=== PATIENT | female | born 1945 | race Caucasian/White ===

== ENCOUNTER → 2017-01-21 | Outpatient (CLI) | payer OTHER ==
[~2017-01-21] MED LIST: ASCO1CAP3 PO; AZEL15GE TOP; BIOTCAP2 PO; BROM0.07 OPL; CALC-279 PO; CLR10 PO; DICL1GEL12 TD; DOXYCYCLINE PO; GABA-113 PO; LEVO75TA5 PO; MULT-506 PO; OMEG12006 PO; OMEP20CA9 PO; OSTEOBIFLEX PO; PRED1SUS3 OPL; VALA1TAB PO
== END | disposition home or self-care (01) ==
LOC: C.RDSM 13:53
PROVIDERS: ATTEND Physical Medicine & Rehabilitation Sports Medicine
DX: M25.561 Pain in right knee (principal)

== ENCOUNTER → 2017-04-22 | Outpatient (CLI) | payer OTHER | END | disposition home or self-care (01) | LOC: C.RDSM 10:37 | PROVIDERS: ATTEND Physical Medicine & Rehabilitation Sports Medicine | DX: M25.511 Pain in right shoulder (principal) ==

== ENCOUNTER → 2017-04-23 | Outpatient (CLI) | payer OTHER ==
--- NOTE | 2017-04-23 15:18 | MAMMOGRAPHY REPORT ---
BILATERAL DIGITAL SCREENING MAMMOGRAM TOMOSYNTHESIS WITH CAD: 04/23/2017 CLINICAL HISTORY: Routine screening. Patient has no complaints. TECHNIQUE: Breast tomosynthesis in addition to standard 2D mammography was performed. Current study was also evaluated with a Computer Aided Detection (CAD) system. COMPARISON: Comparison is made to exams dated: 04/24/2016 mammogram, 04/24/2016 ultrasound, 04/17/2016 mammogram, 04/14/2015 mammogram, 04/13/2014 mammogram, and 04/12/2013 mammogram - [facility] enter. BREAST COMPOSITION: There are scattered areas of fibroglandular density in both breasts. FINDINGS: No suspicious masses, calcifications, or areas of architectural distortion are noted in ei ther breast. There has been no significant interval change compared to prior exams. Scattered bilater al benign-appearing calcifications are not significantly changed. IMPRESSION: ACR BI-RADS CATEGORY 2: BENIGN There is no mammographic evidence of malignancy. A 1 year screening mammogram is recommended. The pa tient will receive written notification of the results. Approximately 10% of breast cancers are not detected with mammography. A negative mammographic report should not delay biopsy if a clinically suggestive mass is present. Raissa Sharpe M.D. /:04/23/2017 11:18:13 Turret Lathe Operator: Rebecca GOMEZ(Molly)(M), [facility] letter sent: Normal 1/2 BI-RADS Code: ACR BI-RADS Category 2: Benign
== END | disposition home or self-care (01) ==
LOC: C.MAMM 09:35
PROVIDERS: ATTEND Family Medicine
DX: Z12.31 Encounter for screening mammogram for malignant neoplasm of breast (principal)

== ENCOUNTER → 2017-09-18 | Outpatient (CLI) | payer OTHER ==
--- NOTE | 2017-09-18 15:42 | DIAGNOSTIC IMAGING REPORT ---
L KNEE 3 VIEWS CLINICAL HISTORY: ACUTE LEFT KNEE PAIN pain COMPARISON: None. DISCUSSION: Several subtle loss as well as bodies within the intercondylar notch. Mild degenerative change all major joint compartments. No evidence for fracture. Mild peripheral osteophytic reaction from all major joint compartments. There is no evidence for soft tissue swelling. IMPRESSION: Mild degenerative change all major joint compartments. Several small loose bodies at the intercondylar notch region. The above report was generated using voice recognition software. It may contain grammatical, syntax or spelling errors. Electronically signed by: Dylan Lima M.D. 09/18/2017 3:41 PM Dictated Date/Time: 09/18/2017 3:40 PM
== END | disposition home or self-care (01) ==
LOC: C.RDSM 20:15
PROVIDERS: ATTEND Family Medicine
DX: M25.562 Pain in left knee (principal); M23.42 Loose body in knee, left knee

== ENCOUNTER → 2017-10-07 | Outpatient (CLI) | payer OTHER | END | disposition home or self-care (01) | LOC: C.RDSM 14:21 | PROVIDERS: ATTEND Physical Medicine & Rehabilitation Sports Medicine | DX: M25.561 Pain in right knee (principal) ==

== ENCOUNTER → 2018-02-27 | Outpatient (CLI) | payer OTHER ==
[~2018-02-27] MED LIST changes: +ASPI81TA28 PO; -AZEL15GE TOP; -BIOTCAP2 PO; -BROM0.07 OPL; +COEN75CA PO; +DOXY100C76 PO; -DOXYCYCLINE PO; +METRONIDAZOLE GEL TOP; -PRED1SUS3 OPL; +RED1CAP5 PO; -VALA1TAB PO; +VALA500T60 PO
[2018-02-27 13:07] LABS: BASO % 0.2 %; BASO ABS # 0.01 K/uL (0-0.2); EOS % 1.8 %; EOS ABS # 0.12 K/uL (0-0.5); HEMATOCRIT 42.8 % (37-47); HEMOGLOBIN 14.3 g/dL (12.0-16.0); IG# 0.01 K/uL (0.00-0.02); LYMPH % 42.6 %; MEAN CELL VOLUME 85.8 fL (80-100); MEAN CORPUSCULAR HEMOGLOBIN 28.7 pg (25-34); MEAN CORPUSCULAR HGB CONC 33.4 g/dl (32-36); MEAN PLATELET VOLUME 10.1 fL (7.4-10.4); MONO ABS # 0.33 K/uL (0.11-0.59); NEUT % 50.2 %; PLATELET COUNT 270 K/uL (130-400); RED CELL DISTRIBUTION WIDTH CV 13.5 % (11.5-14.5); WHITE BLOOD COUNT 6.57 K/uL (4.8-10.8)
--- NOTE | 2018-02-27 13:08 | DIAGNOSTIC IMAGING REPORT ---
CHEST 2 VIEWS ROUTINE CLINICAL HISTORY: PAT preoperative evaluation COMPARISON STUDY: No previous studies for comparison. FINDINGS: The bones soft tissues and hemidiaphragms are normal. The cardiomediastinal silhouette is normal. The lungs are clear. The pulmonary vasculature is normal. IMPRESSION: Negative chest. The above report was generated using voice recognition software. It may contain grammatical, syntax or spelling errors. Electronically signed by: Dylan Lima M.D. 02/27/2018 1:07 PM Dictated Date/Time: 02/27/2018 1:03 PM
[2018-02-27 13:17] LABS: BLOOD UREA NITROGEN 19 mg/dl (7-18); CALCIUM 9.6 mg/dl (8.5-10.1); CARBON DIOXIDE 27 mmol/L (21-32); GLUCOSE 88 mg/dl (70-99); POTASSIUM 4.3 mmol/L (3.5-5.1); SODIUM 139 mmol/L (136-145)
[2018-02-27 13:23] LABS: PTT PATIENT 26.9 SECONDS (21.0-31.0)
== END | disposition home or self-care (01) ==
LOC: C.RAD 11:56
PROVIDERS: ATTEND Physical Medicine & Rehabilitation Sports Medicine
DX: Z01.818 Encounter for other preprocedural examination (principal); M17.11 Unilateral primary osteoarthritis, right knee

== ENCOUNTER 2018-03-17 05:01 | Inpatient (IN) | payer OTHER ==
--- NOTE | 2018-02-27 12:21 | PAT Medication Instructions ---
Service Date Feb 27, 2018. Current Home Medication List Ascorbic Acid (Vitamin C), 1 CAP PO BID Aspirin (Aspirin Ec), 81 MG PO HS Calcium Citrate-Vitamin D (Calcium Citrate + D), 1 TAB PO QPM Coenzyme Q10 (Ubidecarenone) (Co Q-10), 1 CAP PO BID Diclofenac Sodium (Topical) (Voltaren 1% Top Gel), 1 DOSE TD DIRECTED Doxycycline Monohydrate (Monodox), 50 MG PO BID Gabapentin (Neurontin), 600 MG PO TID Levothyroxine Sodium (Levothyroxine Sodium), 1 TAB PO QAM Loratadine (Claritin), 10 MG PO HS Multivitamin (Multivitamin), 1 TAB PO QAM Stilwell-3 Fatty Acids ([place]ilwell 3), 1 CAP PO QAM Omeprazole (Prilosec), 20 MG PO QPM Red Yeast Rice Extract (Red Yeast Rice), 600 MG PO BID Valacyclovir (Valtrex), 500 MG PO BID PRN for UD [Metronidazole Gel], 1 DOSE TOP UD [Osteobiflex], 1 CAP PO BID Medication Instructions For Your Scheduled Surgery - Hold the following medications 2 weeks prior to surgery: Coenzyme Q10 (Ubidecarenone) (Co Q-10), 1 CAP PO BID Stilwell-3 Fatty Acids (Stilwell 3), 1 CAP PO QAM Red Yeast Rice Extract (Red Yeast Rice), 600 MG PO BID [Osteobiflex], 1 CAP PO BID - Hold the following medications 24 hours prior to surgery: Diclofenac Sodium (Topical) (Voltaren 1% Top Gel), 1 DOSE TD DIRECTED [Metronidazole Gel], 1 DOSE TOP UD - Hold the following medications the morning of surgery: Ascorbic Acid (Vitamin C), 1 CAP PO BID Multivitamin (Multivitamin), 1 TAB PO QAM - Take the following medications the morning of surgery with a sip of water: Doxycycline Monohydrate (Monodox), 50 MG PO BID Gabapentin (Neurontin), 600 MG PO TID Levothyroxine Sodium (Levothyroxine Sodium), 1 TAB PO QAM Valacyclovir (Valtrex), 500 MG PO BID PRN for UD (if needed) - Take the following medications as scheduled the night before surgery: Ascorbic Acid (Vitamin C), 1 CAP PO BID Aspirin (Aspirin Ec), 81 MG PO HS Calcium Citrate-Vitamin D (Calcium Citrate + D), 1 TAB PO QPM Doxycycline Monohydrate (Monodox), 50 MG PO BID Gabapentin (Neurontin), 600 MG PO TID Loratadine (Claritin), 10 MG PO HS Omeprazole (Prilosec), 20 MG PO QPM Valacyclovir (Valtrex), 500 MG PO BID PRN for UD (if needed) If you have any questions please call us at [phone] or [phone] or [phone]
--- NOTE | 2018-03-03 13:45 | History and Physical ---
History & Physical Date & Time of Service: Mar 03, 2018 at 12:55 Chief Complaint: Right Knee Osteoarthritis Primary Care Physician: Nasim Holcomb M.D. History of Present Illness Source: patient Mrs. Akbar is a pleasant 72-year-old female who is here today for preoperative history and physical. She is scheduled for elective right total knee arthroplasty by Dr. Arango on March 17, 2018. Her surgery will be performed at the [facility]. She states that she has long- standing bilateral knee pain, right greater than left. He has been ongoing for many years. Over the last 6-12 months both knees have progressively worsened. Most of her pain on her right knee is on the inside aspect of the knee. Her pain is increased with activity and weightbearing. She does have decreasing activities of daily living due to pain in both of her knees. She has pain with range of motion and limited motion of her right knee due to pain. Aggravating activities include walking, going up and down steps. She gets stiffness after resting in one position for a period of time. She states it does take a couple steps to kind of loosen things up. Prior treatments include nonsteroidal anti- inflammatory drugs, outpatient physical therapy, corticosteroid injections and viscous supplementation. All these previous treatments provide little to no relief at this point. Due to her failure of conservative treatment and persistent and progressively worsening symptoms she would like to proceed with an elective total knee arthroplasty of her right knee. Past Medical/Surgical History Past medical history: 1. Rosacea 2. Hypothyroidism 3. Osteoarthritis 4. History of spine, neck and upper back problems 5. Acid reflux 6. History of kidney stones Past surgical history: 1. Tonsillectomy and adenoidectomy 2. Cyst on her breast excised 3. Uterine and ovarian fibroids removed by laser surgery 1982 4. Cholecystectomy 5. Spinal fusion of L4-L5, L3-L4 6. Cyst removed of her spinal cord Family History Father has a history of heart disease and stroke. Mother has a history of stroke. Social History She uses a cane to assist with ambulation. Smoking Status: Never Smoker Smokeless Tobacco Use: No Alcohol Use: none Drug Use: none Marital Status: Housing status: lives with significant other Immunizations History of Influenza Vaccine: Yes Influenza Vaccine Date: Apr 13, 2005 History of Tetanus Vaccine?: Yes History of Pneumococcal: Yes History of Hepatitis B Vaccine: No Allergies Coded Allergies: Sulfa Drugs (Verified Allergy, Intermediate, HIVES, 02/23/18) Oxycodone (Verified Adverse Reaction, Unknown, HALLUCINATES, 02/23/18) Home Medications Scheduled Ascorbic Acid (Vitamin C), 1 CAP PO BID Aspirin (Aspirin Ec), 81 MG PO HS Calcium Citrate-Vitamin D (Calcium Citrate + D), 1 TAB PO QPM Coenzyme Q10 (Ubidecarenone) (Co Q-10), 1 CAP PO BID Diclofenac Sodium (Topical) (Voltaren 1% Top Gel), 1 DOSE TD DIRECTED Doxycycline Monohydrate (Monodox), 50 MG PO BID Gabapentin (Neurontin), 600 MG PO TID Levothyroxine Sodium (Levothyroxine Sodium), 1 TAB PO QAM Loratadine (Claritin), 10 MG PO HS Multivitamin (Multivitamin), 1 TAB PO QAM Hillsdale-3 Fatty Acids ([place] 3), 1 CAP PO QAM Omeprazole (Prilosec), 20 MG PO QPM Red Yeast Rice Extract (Red Yeast Rice), 600 MG PO BID [Metronidazole Gel], 1 DOSE TOP UD [Osteobiflex], 1 CAP PO BID Scheduled PRN Valacyclovir (Valtrex), 500 MG PO BID PRN for UD Review of Systems She states that she gets occasional sinus headaches. On blurry vision, but needs cataract surgery. She occasionally gets constipated but it is relieved with prunes. Denies any history of MRSA. Constitutional: No fever, No chills, No sweats, No weight loss, No fatigue Eyes: No worsening of vision, No redness, No diplopia ENT: No hearing loss, No unusual epistaxis, No nasal symptoms, No sore throat, No tinnitus, No dental problems Respiratory: No cough, No sputum, No wheezing, No shortness of breath, No dyspnea on exertion, No dyspnea at rest Cardiovascular: No chest pain, No edema, No palpitations Abdomen: No pain, No nausea, No vomiting, No diarrhea, No constipation Musculoskeletal: + joint pain (Bilateral knees), No swelling, No calf pain Genitourinary - Female: + urinary incontinence (With sneezing or coughing), No dysuria, No urinary frequency, No urinary urgency, No urinary retention, No hematuria Neurologic: No memory loss, No paralysis, No numbness/tingling, No balance problems Psychiatric: No depression symptoms, No anxiety Hematologic / Lymphatic: No abnormal bleeding/bruising, No clotting problems Integumentary: No rash, No itch Allergic / Immunologic: No frequent infections Physical Exam Height 5 feet 4 inches, weight 175 pounds General Appearance: WD/WN, no apparent distress Head: normocephalic, atraumatic Eyes: normal inspection, PERRL, EOMI, sclerae normal ENT: normal ENT inspection, hearing grossly normal, TMs normal, pharynx normal Neck: supple, no adenopathy, no carotid bruits, trachea midline Respiratory/Chest: chest non-tender, lungs clear, normal breath sounds, no respiratory distress, no accessory muscle use Cardiovascular: regular rate, rhythm, no edema, no murmur, normal peripheral pulses Abdomen/GI: normal bowel sounds, non tender, soft Extremities/Musculoskelatal: normal inspection, no calf tenderness, normal capillary refill, no pedal edema, normal range of motion, + pertinent finding ( She ambulance with a positive limp and the assistance of a cane. Varus alignment bilaterally with normal head movement. Active straight leg raise is intact. Passively, she has negative straight leg raise bilaterally. Strength is normal 5/5 throughout. Range of motion is 0/10/110 on the right, 0/10/105 on the left. Cruciate and collateral stability is intact. She is tenderness of the medial joint line.) Neurologic/Psych: no motor/sensory deficits, alert, normal mood/affect, normal reflexes, oriented x 3 Skin: normal color, warm/dry, no rash Lymphatic: no adenopathy Diagnostics Diagnostic Radiology Diagnostic radiology: Radiographs done on October 07, 2017 of both knee show osteoarthritis, tricompartmental on the right knee with near [id number] changes, less so on the left. It looks like there are several loose bodies in the front of the left knee. There is no evidence of fracture on either knee. Osteophyte formation is present. Impression Assessment and Plan Assessment: Bilateral knee osteoarthritis, right greater than left. Plan: Patient is scheduled for an elective right total knee arthroplasty to be performed by Dr. Arango at the [facility] on March 17, 2018. Risks and complications of surgery were explained to the patient and include but are not limited to infection, pain, bleeding, scarring, nerve and blood vessel damage, wound problems, weakness, stiffness, incomplete relief of symptoms, fracture, hardware failure, loosening, wear, blood clots, embolisms, heart attack, stroke and .She will have preadmission testing and which she will obtain a preoperative CBC, BMP, PT/PTT, type and screen, chest x-ray, EKG. She will also need preoperative medical clearance prior to surgery from her family physician Dr. Spaulding. She would like to go home with in-home nursing and physical therapy after surgery. She states that after her back surgery she did best when she stayed for 2 days. Postoperative course was discussed. She does have a walker to use at home after surgery. We will use Lovenox 30 mg twice a day x 2-44 weeks after surgeryFor DVT prophylaxis. She will follow up 2 weeks after surgery with Dr. Arango for suture removal. We discussed the usage of preoperative CHG cloths. All questions were answered today. And she does call with any further problems, questions or concerns. Advanced Directives Existing Living Will: Yes Existing Power of Rivet Bucker: No Resuscitation Status VTE Prophylaxis Will order VTE Prophylaxis: Yes
[~2018-03-17] VITALS: Ht 162.6 cm; Wt 80.6 kg
[2018-03-17] VITALS (9 sets, daily range): BP systolic 114–162; BP diastolic 71–89; PULSE 73–82; TEMP 36.2–36.7; O2SAT 94–98; Ht 162.6 cm; Wt 80.6 kg
[~2018-03-17 05:01] MED LIST changes: +ROPIVACAINE 5MG/ML 30 ML 150 MG, BUPIVACAINE 0.5% MPF INJ 30 ML, EpINEphrine HCL INJ 0.... INFIL SCH
[2018-03-17] MEDS ORDERED: LACTATED RINGER'S 1000ML 1,000 ML IV SCH (06:00)
[2018-03-17] MEDS ORDERED: CLONIDINE HCL 0.1 MG/24 HR TRANSDERM SYS TD SCH (06:00)
[2018-03-17] MEDS ORDERED: OXYCODONE HCL 10 MG TABCR (OXYCONTIN) PO SCH (06:00)
[2018-03-17] MEDS ORDERED: FAMOTIDINE 20 MG TAB PO SCH (06:00)
[2018-03-17] MEDS ORDERED: CEFAZOLIN 2000MG IV PUSH 15 ML IV SCH (06:00)
[2018-03-17] MEDS ORDERED: ACETAMINOPHEN 500 MG TAB PO SCH (06:00)
[2018-03-17] MEDS ORDERED: TRAMADOL HCL 50 MG TAB PO SCH (06:00)
[2018-03-17] MEDS ORDERED: GABAPENTIN 300 MG CAP PO SCH (06:00)
[2018-03-17] MEDS ORDERED: LACTATED RINGER'S 1000ML IV SCH (06:00)
[2018-03-17] MEDS ORDERED: TRANEXAMIC ACID INJ 1,000 MG x 1 Bag Intra-Op IV SCH ×2 (06:00)
[2018-03-17] MEDS ORDERED: LACTATED RINGER'S 1000ML 500 ML IV SCH (06:00)
[2018-03-17] MEDS ORDERED: DEXAMETHASONE 4 MG TAB PO SCH (06:00)
[2018-03-17] MEDS ORDERED: ROPIVACAINE 5MG/ML 30 ML 150 MG, BUPIVACAINE 0.5% MPF INJ 30 ML, EpINEphrine HCL INJ 0.... INFIL SCH ×6 (06:00)
[2018-03-17] MEDS ORDERED: METOCLOPRAMIDE HCL 10 MG TAB PO SCH (06:00)
[2018-03-17] MEDS ORDERED: BUPIVACAINE 0.5 % 5 MG/1 ML PF 10ML VIAL ONE (06:26)
[2018-03-17] MEDS ORDERED: ROPIVACAINE 0.5% 5 MG/ML 30 ML VIAL ONE (06:26)
[2018-03-17] MEDS ORDERED: POVIDONE-IODINE OP SOLN 30 ML BTL ONE (06:28)
[2018-03-17] MEDS ORDERED: ORTHO JOINT ANESTHETIC ONE (06:28)
[2018-03-17] MEDS ORDERED: SODIUM CHLORIDE 0.9% PF 50 ML VIAL ONE (06:29)
[2018-03-17] MEDS ORDERED: BACITRACIN 50000 UNIT VIAL ONE (06:29)
[2018-03-17] MEDS ORDERED: FENTANYL CITRATE INJ 50 MCG/1 ML 2 ML VIAL ONE (06:34)
[2018-03-17] MEDS ORDERED: MIDAZOLAM HCL 1 MG/ML 2ML VIAL ONE ×2 (06:34→08:45)
[2018-03-17] MEDS ORDERED: PROPOFOL IV EMULSION 10 MG/ML 20 ML VIAL ONE (06:35)
--- NOTE | 2018-03-17 06:36 | History & Physical Bridge Note ---
H&P Re-Evaluation Bridge Note: I have examined the patient, reviewed the History & Physical and in the interval since the performance of the History & Physical I have noted the following changes of clinical significance: No changes noted
[2018-03-17] MEDS: TRANEXAMIC ACID INJ 1,000 MG x 2 Bags IV SCH ×4 (06:45→11:23)
[2018-03-17] MEDS ORDERED: PHENYLEPHRINE 100MCG/ML 5ML SYR IV PRN (08:00)
[2018-03-17] MEDS ORDERED: EpHEDrine SULFATE INJ 50 MG/ML AMP IV PRN (08:00)
[2018-03-17] MEDS ORDERED: NALOXONE HCL 0.4 MG/1 ML VIAL/CARP IV PRN (08:00)
[2018-03-17] MEDS ORDERED: MEPERIDINE HCL 25 MG/ML CARP IV PRN (08:00)
[2018-03-17] MEDS ORDERED: ATROPINE SULFATE 0.1 MG/ML 5ML SYR IV PRN (08:00)
[2018-03-17] MEDS ORDERED: LABETALOL HCL IV 5 MG/ML 20ML IV PRN (08:00)
[2018-03-17] MEDS ORDERED: FENTANYL CITRATE INJ 50 MCG/1 ML 2 ML VIAL IV PRN (08:00)
[2018-03-17] MEDS ORDERED: FLUMAZENIL 0.1 MG/1 ML 10 ML VIAL IV PRN (08:00)
[2018-03-17] MEDS ORDERED: ONDANSETRON INJ 2 MG/ML 2 ML VIAL IV PRN (08:00)
--- NOTE | 2018-03-17 09:21 | [facility] Post Operative Brief Note ---
Immediate Operative Summary Operative Date Mar 17, 2018. Pre-Operative Diagnosis Right Knee Osteoarthritis Post-Operative Diagnosis Same as preop Procedure(s) Performed Right Total Knee Arthroplasty Surgeon Dr. Arango Powder Coater Surgeon(s) Hortensia Mehta PA-C Estimated Blood Loss 10mL Findings Consistent with Post-Op Diagnosis Specimens A. Right Knee Bone and Tissue Drains None Anesthesia Type MAC Spinal Regional Complication(s) none Disposition Accompanied Pt To Recover: no Disposition: Recovery Room / PACU
[2018-03-17] MEDS ORDERED: HYDROmorphone INJ 1 MG/ML SYR IV PRN (09:45)
[2018-03-17] MEDS ORDERED: TRAMADOL HCL 50 MG TAB PO PRN (09:45)
[2018-03-17] MEDS ORDERED: BISACODYL 10 MG SUPP PR PRN (09:45)
[2018-03-17] MEDS ORDERED: SOD PHOSPHATE/SOD BIPHOSPHATE ENEMA 132 ML BTL PR PRN (09:45)
[2018-03-17] MEDS ORDERED: METOCLOPRAMIDE HCL INJ 5 MG/ML 2 ML VIAL IV PRN (09:45)
[2018-03-17] MEDS ORDERED: ACETAMINOPHEN 325 MG TAB PO PRN (09:45)
[2018-03-17] MEDS ORDERED: MAGNESIUM HYDROXIDE SUSP 30 ML UDC PO PRN (09:45)
--- NOTE | 2018-03-17 09:56 | [facility] Operative Report ---
Operative Report Operative Date Mar 17, 2018. Pre-Operative Diagnosis Right Knee Osteoarthritis Post-Operative Diagnosis Same as preop Procedure(s) Performed Right Total Knee Arthroplasty Surgeon Dr. Arango Grinder Chipper Surgeon(s) Hortensia Mehta PA-C Estimated Blood Loss 10mL Findings DJD right knee Specimens A. Right Knee Bone and Tissue Drains None Anesthesia Type MAC Spinal Regional Complication(s) none Disposition no Recovery Room / PACU Indications Patient is a 72-year-old female presented to the office with complaints of right knee pain. Pain is progressively worse. She has failed conservative treatment which has consisted of bracing, corticosteroid injections, Visco supplementation and physical therapy. X-rays were taken and she was found to have end-stage osteoarthritis of her right knee. She wished to proceed with surgery. Risks and complications were discussed. Informed consent was obtained. Surgery was scheduled. Description of Procedure Patient was taken to the operating room and placed under IV sedation. She was given a peripheral nerve block preoperatively. She was given 2 g of IV Ancef preoperatively. She was prepped and draped in routine sterile fashion. Timeout was performed. I was present during the entire case, please see Dr. Arango's operative report for further detail. Patient was awakened and transferred to the recovery room in stable condition. I attest to the content of the Intraoperative Record and any orders documented therein. Any exceptions are noted below.
--- NOTE | 2018-03-17 09:59 | [facility] Operative Report ---
Operative Report Operative Date Mar 17, 2018. Pre-Operative Diagnosis Right Knee Osteoarthritis Post-Operative Diagnosis Same as preop Procedure(s) Performed Right Total Knee Arthroplasty Surgeon Dr. Arango Log Tumbler Surgeon(s) Hortensia Mehta PA-C Estimated Blood Loss 10mL Specimens A. Right Knee Bone and Tissue Drains None Anesthesia Type MAC Spinal Regional Complication(s) none Disposition no Recovery Room / PACU Indications Patient is a 72-year-old female with end-stage osteoarthritis of her right knee refractory to nonsurgical methods of management. Description of Procedure Informed consent obtained. Patient identified. She identified the operative site as the right knee. I marked with my initials. A preop surgical timeout was performed and a preop dose of IV antibiotics given. She was taken to the operating room and was positioned supine on the OR table with a tourniquet on the right thigh and a bump under the right calf. The leg was prepped and draped in usual sterile fashion. DVT prophylaxis intraoperatively with foot pumps and postoperatively with early mobility Lovenox and mechanical devices. The exam under anesthesia revealed no pathological laxity. She had a stiff varus knee with a 10 flexion contracture and her knee flexion was only to about 110. Routine prep and drape was performed. The leg was exsanguinated with the Esmarch. Tourniquet inflated to 250 mmHg. A midline longitudinal incision was made followed by medial parapatellar arthrotomy. Soft tissue on the anterior aspect of the distal femur was excised. The retropatellar fat pad was resected. A medial release was performed. Osteophytes throughout the knee were removed there were grade 4 changes in the patellofemoral compartment with large osteophytes on the patella grade 4 changes medially as well over the weightbearing area. The lateral compartment was relatively normal the cruciate ligaments were intact although the ACL was small. The cruciate ligaments were excised. The synovial reflection in the lateral gutter was released. The knee was subluxated and a ems helicopter pilot hole was drilled into the proximal tibia just in front and between the tibial spines. An intramedullary alignment ghislaine was inserted followed by the tibial cutting guide. The extra medullary alignment guide was utilized showing a slight posterior slope but otherwise alignment with the second ray and bisecting the ankle joint. This cut was made to take 10 mm off the high side corresponding to about 4 mm off the low side. The tibia was sized to a 3. Glue Bone Crusher hole was drilled into the distal femur just above the PCL and the intramedullary alignment ghislaine was inserted set to resect 6 valgus 14 mm thick. The collaterals were okay. This cut was made and the trans-epicondylar axis marked out. The extension gap was symmetric 10. The distal femoral sizing block was applied and sized with 3. The external rotation drill holes were marked. The collateral ligaments were protected and the size 3 anterior down cutting block was applied and the cuts were made. Osteophytes were removed from the back of the knee. Approximately 5 large loose bodies were removed throughout the knee including posterior medially. Posterior medial and lateral osteophytes were removed. The flexion gap was a symmetric 10. The box cutting guide was applied and lateralized. The cut was made and the femoral component was applied. The tibia was prepared with the keel and punch and the trial spacer was inserted. The knee was stable full extension and at 90. There was 1 + LCL laxity in mid position the MCL was stable. The patella measured 22-1/2 mm in thickness the guide was set to preserve 14. The cut was made in 38 patella was selected. This was aligned appropriately distal lysed and medialized. The lug holes were drilled. Patellar tracking was fine with no hands technique. The trial components removed. The canals were plugged. Or the joint mix was injected in the back of the knee Betadine lavage and pulse lavage was then performed. 2 bags of Simplex P cement were mixed and while in a doughy state cemented femur tibia and patella. Smears of cement were placed on the posterior condyles and he was held for extension with patellar clamp until the cement hardened. At this time the tourniquet was let down after approximately 85 minutes of inflation there is no significant bleeding and meticulous hemostasis was performed. Extraneous cement in the back the knee was removed. The after mentioned laxity profile held true. The final polyethylene was inserted after inspecting the back the knee for cement and irrigating. Composite patellar thickness was 23 mm gravity assisted flexion with the extensor mechanism closed was 110. Pulsatile lavage was performed and the remainder the Ortho joint mix was injected Betadine lavage was also performed while the cement was hardening. The extensor mechanism was closed with interrupted #2 FiberWire above the equator the patella and interrupted #1 Vicryl below the skin was closed in layers with 0 and 2-0 and carlos followed by ortho joint mix. The leg was cleaned wet and dry sponges and soft sterile dressing was applied followed by Xeroform 4 x 4's ABD and a full-length Leonard wrap. She was awakened from anesthesia without difficulty and taken to the recovery room in stable condition. The resected bone from for specimen. There were no complications. Blood loss was approximately 10 cc. At the conclusion the operation I spoke the patient's family and informed of my findings and gave detailed postoperative instructions. Her Lovenox will begin the evening of surgery. Components inserted with a J&J PFC Sigma size 3 right posterior stabilized femur a size 3 posterior stabilized polyethylene insert a 38 mm 3 peg oval dome patella and a size 3 keeled mobile-bearing tibial tray. I attest to the content of the Intraoperative Record and any orders documented therein. Any exceptions are noted below.
--- NOTE | 2018-03-17 10:21 | DIAGNOSTIC IMAGING REPORT ---
R KNEE 1 OR 2 VIEWS ROUTINE CLINICAL HISTORY: Right knee osteoarthritis. COMPARISON: Right knee radiograph October 07, 2017. FINDINGS: Alignment of the total right hip arthroplasty is anatomic. There is no fracture or unexpected radiopaque foreign body. Skin carlos are present. IMPRESSION: Expected findings following total right hip arthroplasty. Electronically signed by: Efrain Coon M.D. 03/17/2018 10:19 AM Dictated Date/Time: 03/17/2018 10:19 AM
--- NOTE | 2018-03-17 10:22 | Anesthesiology Progress Note ---
Anesthesia Post Op Note Date & Time Mar 17, 2018 at 10:22 Vital Signs Pain Intensity: 0 Vital Signs Past 12 Hours Date Time Temp Pulse Resp B/P (MAP) Pulse Ox O2 Delivery O2 Flow Rate FiO2 03/17/18 10:10 77 16 119/66 95 Nasal Cannula 2 03/17/18 10:00 36.4 76 16 114/60 93 Nasal Cannula 2 03/17/18 09:50 75 16 107/64 93 Nasal Cannula 2 03/17/18 09:41 36 88 16 130/65 93 Nasal Cannula 2 03/17/18 05:32 36.2 80 20 162/89 97 Room Air Notes Mental Status: alert / awake / arousable, participated in evaluation Pt Amnestic to Procedure: Yes Nausea / Vomiting: adequately controlled Pain: adequately controlled Airway Patency, RR, SpO2: stable & adequate BP & HR: stable & adequate Hydration State: stable & adequate Neuraxial Anesthesia: was administered, sensory block is resolving Anesthetic Complications: no major complications apparent
[2018-03-17] MEDS ORDERED: KETOROLAC TROMETHAMINE 30 MG/ML VIAL IV. SCH (12:00)
[2018-03-17] MEDS: KETOROLAC TROMETHAMINE 15 MG/ML VIAL IV. SCH ×3 (12:45→23:36)
[2018-03-17] MEDS: GABAPENTIN 600 MG TAB PO SCH ×2 (13:58→21:10)
[2018-03-17] MEDS: CEFAZOLIN IV 2,000 MG in SYRINGE 0 ML IV SCH ×2 (13:58→21:45)
[2018-03-17] MEDS ORDERED: LVNIS30 SQ (16:08)
[2018-03-17] MEDS ORDERED: HYDR-5688 PO (16:08)
[2018-03-17] MEDS ORDERED: ULT50X PO (16:08)
--- NOTE | 2018-03-17 16:27 | Progress Note ---
Progress Note Date of Service Mar 17, 2018. Progress Note Pain well controlled. No chest pain or shortness of breath. She has been out of bed and tolerating food. Afebrile vital signs stable. She has 5 out of 5 ankle and toe plantar flexion and dorsiflexion strength in her posterior tib pulse is 1+. Sensation is normal dressing is dry x-rays show well-positioned total knee arthroplasty without complication. Surgical findings are discussed. Will continue with routine postoperative care. Exercises are reviewed and she will wear her knee immobilizer when she is out of bed.
[2018-03-17] MEDS: D5W AND 1/2NSS + 20MEQ KCL 1,000 ML IV SCH (18:47)
[2018-03-17] MEDS: ENOXAPARIN 30 MG/0.3 ML SYR SQ SCH (19:52)
[2018-03-17] MEDS: CALCIUM 600MG + VIT D 400 IU TAB PO SCH (21:06)
[2018-03-17] MEDS: LORATADINE 10 MG TAB PO SCH (21:07)
[2018-03-17] MEDS: DOCUSATE SODIUM 100 MG CAP PO SCH (21:10)
[2018-03-17] MEDS: ASPIRIN 81 MG ECTAB PO SCH (21:10)
[2018-03-17] MEDS: ASCORBIC ACID 500 MG TAB PO SCH (21:11)
[2018-03-18] MEDS: D5W AND 1/2NSS + 20MEQ KCL 1,000 ML IV SCH ×2 (02:49→12:00)
[2018-03-18 02:55] VITALS: BP 143/74; PULSE 87; TEMP 36.9; O2SAT 97
[2018-03-18] MEDS: ONDANSETRON INJ 2 MG/ML 2 ML VIAL IV PRN ×2 (05:22→15:58)
[2018-03-18] MEDS: KETOROLAC TROMETHAMINE 15 MG/ML VIAL IV. SCH (05:22)
[2018-03-18] MEDS: LEVOTHYROXINE 75 MCG TAB PO SCH (05:28)
[2018-03-18 06:40] LABS: HEMATOCRIT 32.4 % (37-47); HEMOGLOBIN 10.7 g/dL (12.0-16.0); MEAN CELL VOLUME 84.6 fL (80-100); MEAN CORPUSCULAR HEMOGLOBIN 27.9 pg (25-34); MEAN PLATELET VOLUME 9.8 fL (7.4-10.4); PLATELET COUNT 224 K/uL (130-400); RED CELL DISTRIBUTION WIDTH CV 13.5 % (11.5-14.5); RED CELL DISTRIBUTION WIDTH SD 41.3 fL (36.4-46.3); WHITE BLOOD COUNT 12.94 K/uL (4.8-10.8)
[2018-03-18 07:07] LABS: CALCIUM 7.8 mg/dl (8.5-10.1); CREATININE 0.57 mg/dl (0.60-1.20)
[2018-03-18] MEDS ORDERED: DEXAMETHASONE 4 MG TAB PO ONE (07:30)
[2018-03-18 08:00] VITALS: BP 115/69; PULSE 96; TEMP 37; O2SAT 92
[2018-03-18] MEDS: ENOXAPARIN 30 MG/0.3 ML SYR SQ SCH ×2 (08:11→19:33)
--- NOTE | 2018-03-18 08:52 | Anesthesiology Progress Note ---
Anesthesia Post Op Note Date & Time Mar 18, 2018 at 08:51 Vital Signs Pain Intensity: 6.0 Vital Signs Past 12 Hours Date Time Temp Pulse Resp B/P (MAP) Pulse Ox O2 Delivery O2 Flow Rate FiO2 03/18/18 08:00 37.0 96 16 115/69 (84) 92 Room Air 03/18/18 07:20 Room Air 03/18/18 02:55 36.9 87 18 143/74 (97) 97 Room Air 03/17/18 23:45 Room Air 03/17/18 22:53 36.7 75 18 120/72 (88) 96 Room Air Notes Mental Status: alert / awake / arousable, participated in evaluation Pt Amnestic to Procedure: Yes Nausea / Vomiting: adequately controlled Pain: adequately controlled Airway Patency, RR, SpO2: stable & adequate BP & HR: stable & adequate Hydration State: stable & adequate Neuraxial Anesthesia: sensory block resolved Anesthetic Complications: no major complications apparent
[2018-03-18] MEDS: MULTIVITAMIN TAB PO SCH (09:00)
[2018-03-18] MEDS: DOCUSATE SODIUM 100 MG CAP PO SCH ×2 (09:00→21:00)
[2018-03-18] MEDS: GABAPENTIN 600 MG TAB PO SCH ×3 (09:00→21:09)
[2018-03-18] MEDS: ASCORBIC ACID 500 MG TAB PO SCH ×2 (09:00→21:09)
[2018-03-18] MEDS ORDERED: MULTIVITAMIN TAB PO SCH (09:00)
[2018-03-18] MEDS ORDERED: ONDA4TAB10 SL (09:20)
--- NOTE | 2018-03-18 09:24 | Orthopedic Progress Note ---
Orthopedic Progress Note Date of Service Mar 18, 2018. Subjective Post OP Day: 1 Reports: nausea / vomiting, Denies: chest pain, SOB, light headedness, calf pain Additional Notes: Having more pain today, biggest complaint is nausea. No vomiting, but feels like she's going to. No appetite because of the nausea. States its from taking Tramadol on an empty stomach this morning. More pain in her right knee, but tolerable. Has been given Zofran without relief and also just given Reglan to help with nausea. She would still like to go home today, states she needs to get into her own bed to sleep. Objective calves soft nontender, N/V intact, capillary refill less than 2 sec., dressing C /D/I, A&O x3, toes mobile Able to do ankle pumps right ankle. Strength 5/5 with ankle dorsiflexion/ plantarflexion Date Time Temp Pulse Resp B/P (MAP) Pulse Ox O2 Delivery O2 Flow Rate FiO2 03/18/18 08:00 37.0 96 16 115/69 (84) 92 Room Air 03/18/18 07:20 Room Air 03/18/18 02:55 36.9 87 18 143/74 (97) 97 Room Air 03/17/18 23:45 Room Air 03/17/18 22:53 36.7 75 18 120/72 (88) 96 Room Air 03/17/18 19:12 36.7 77 17 150/72 (98) 94 Room Air 03/17/18 16:18 36.3 73 16 120/72 (88) 95 Room Air 03/17/18 16:10 Room Air 03/17/18 13:30 76 16 114/71 (85) 97 Nasal Cannula 2.0 03/17/18 12:37 77 16 125/79 (94) 98 03/17/18 11:30 82 16 117/74 (88) 95 Nasal Cannula 2.0 03/17/18 11:00 82 16 124/75 (91) 94 Nasal Cannula 03/17/18 10:30 94 Nasal Cannula 2.0 03/17/18 10:30 36.3 75 16 117/73 (88) 94 Nasal Cannula 2.0 03/17/18 10:30 Nasal Cannula 2.0 03/17/18 10:10 77 16 119/66 95 Nasal Cannula 2 03/17/18 10:00 36.4 76 16 114/60 93 Nasal Cannula 2 03/17/18 09:50 75 16 107/64 93 Nasal Cannula 2 03/17/18 09:41 36 88 16 130/65 93 Nasal Cannula 2 Laboratory Results 24 Hours: Test 03/18/18 06:22 Hematocrit 32.4 % Hemoglobin 10.7 g/dL Assessment & Plan Assessment: POD 1 - Right TKA Plan: Start PT/OT today continue zofran/reglan for N/V Ice to right knee PRN pain/swelling. Bedside exercises as instructed. OOB/WBAT RLE with knee immobilizer and walker Continue Regular diet as tolerated Plan for home with home health. Patient would like to go home today, we'll see how she does in PT today to determine discharge. Will discuss findings with Dr. Arango. Follow up with Dr. Arango as instructed. Discharge Planning Discharge Planning: home with home health Pain Management: Percocet, Ultram DVT Prophylaxis: Peter Galindo Therapy: Physical Therapy
--- NOTE | 2018-03-18 09:27 | Discharge Instructions ---
Discharge Instructions Date of Service Mar 17, 2018. Admission Reason for Admission: Right Knee Osteoarthritis Discharge Discharge Diagnosis / Problem: Right knee osteoarthritis Discharge Goals Goal(s): Decrease discomfort, Improve function, Increase independence Activity Recommendations Activity Limitations: per Instructions/Follow-up section Weightbearing Status: Right weightbearing (as tolerated) . Instructions / Follow-Up Instructions / Follow-Up New Medicine: * You will likely be taking one or more of these medications: 1. Lovenox You will be on Lovenox for 2-4 weeks after surgery to prevent blood clots. Do not take anti- inflammatory pills (Advil or Aleve) while on Lovenox. Aspirin, 81 mg is OK. 2. Tramadol - Take, as directed, when needed, every 4-6 hours to control your pain. Alternate with Newman. 3. Newman Take, as directed, when you need it, every four to six hours to control your pain. 4. Colace & Senokot - Take to prevent constipation which can be caused by narcotics. These can be bought [id number] at the pharmacy 5. Zofran - take, every 4-6 hours as needed for nausea and/or vomiting * The most common side effects of pain medicine and iron are nausea and constipation. If nausea or constipation is too much of a problem or if you have any questions about your new medicines or doses, call [facility] at . We will try to help you manage these issues. VERY IMPORTANT TO READ AND REVIEW" Blood Clots and Blood Thinning Medicine: * You are given Lovenox during the immediate post-operative period to lessen the risk of blood clots forming in your legs and/or lungs. Lovenox is usually given for 2-4 weeks after surgery. * The prescription is for 30 mg syringes. At discharge, you should understand your dose and take it all at the same time every day. * You need to get your blood checked on Friday March 23, 2018 or as directed. Physical Therapy: * Do your physical therapy at home. These are the exercises you learned while in the hospital (quad sets, leg raises, calf pumps, gluteal squeezes, knee bending, and heel props.) You should do these exercises 3-4 times per day. * You will either go to inpatient rehab ([facility]), home with Home Therapy and nursing or home with outpatient rehab. You should do rehab with the therapist 2-3 times per week. You should do therapy on your own daily. * You may bear full weight on your leg with crutches or walker unless otherwise advised. Home Exercise: * You were shown a series of exercises (heel props, heel slides, etc.) in the hospital. Do these exercises three to four times each day including the exercises you were shown in physical therapy. Walking: * You may be up for short periods of time. Standing and walking for 1-2 hours at a time is usually okay. You should not stand or walk for excessive periods of time as this may cause increased pain and swelling. SELF CARE INSTRUCTIONS AFTER TOTAL KNEE REPLACEMENT A. You may need to continue a physical therapy program after discharge from the hospital. There are several options available to you. Your doctor will assist you in selecting the best one for you. 1. An out-patient facility 2 to 3 times a week for therapy or home therapy. 2. Continue working on all exercises taught to you in the hospital. Your goals should be to increase bending of your knee to 90 degrees and beyond and to fully straighten your knee. B. Your therapist will notify you when you are able to progress from a walker to a cane. C. Wear TEDS as much as possible.~ They may be removed at night for laundering. D. Do not place a pillow behind your knee when resting. A pillow at your ankle is okay. E. Ice your knee 15-20 minutes every 2-3 hours and elevate it above the level of your heart. F. You may shower on the fourth day after surgery using regular soap and water. Do not submerge until the wound is completely healed (approximately 2 weeks ). Until the fourth day after surgery, cover the incision/bandage with a bag or plastic wrap. G. Anyone who is touching your surgical incision area should wash their hands and wear gloves. H. Keep your incision covered with gauze pads under the ROGER hose until it is dry. VERY IMPORTANT TO READ AND REVIEW A. YOU WILL BE GIVEN AN ORDER AT DISCHARGE FOR CBC (BLOOD WORK). PLEASE HAVE THIS DONE INSTRUCTED. IF YOU ARE GOING TO OUTPATIENT PHYSICAL THERAPY, YOU WILL NEED TO GO TO OUTPATIENT TESTING TO HAVE IT DRAWN. B. There are a few signs you need to watch for after you are home. Call [facility] if you notice any of the followin. Increased severe knee pain. Some pain is expected especially when you exercise. 2. Increased swelling in your leg or knee; pain or swelling of the calf muscle in either lower leg. 3. Any fluid drainage from the incision. 4. Shortness of breath or chest pain. 5. Numbness and tingling in the surgical extremity C. Please call [facility] at if you have any concerns or questions about your operation or recovery. The doctor or his nurse will return your call promptly. D. Do not have any elective dental work or other elective procedures done for 6 weeks after your knee replacement. When you have any invasive procedure (dental cleaning, extraction, colonoscopy etc) performed, you will need to take antibiotics to prevent infection from developing in your artificial joint. Tell your other health care providers you have an artificial joint. My office will supply you with further information and the antibiotics. Call your doctor if: * Temperature above 101 degrees F. * Pain not relieved by pain medicine ordered. * Increased drainage or redness from incision. * Notify your doctor with any questions or concerns. Follow-up Visit: You will follow-up with Dr. Arango 10-14 days after surgery. The office number is . You have a follow up with Dr. Arango on 04/01/18 at 12:45 p.m. You have a scheduled follow up appointment with physical therapy on 04/02/18 at 10:30 a.m. Avoid all tobacco products. If you need help to stop smoking, call [place] at . This is a free call. Current Hospital Diet Patient's current hospital diet: Regular Diet Discharge Diet Recommended Diet: Regular Diet Procedures Procedures Performed: Right Total Knee Arthroplasty Pending Studies Studies pending at discharge: no Medical Emergencies . Who to Call and When: Medical Emergencies: If at any time you feel your situation is an emergency, please call 911 immediately. . Non-Emergent Contact Non-Emergency issues call your: Surgeon Call Non-Emergent contact if: temperature is above 101, your pain is not controlled, your pain is worsening, your pain is unusual for you, your pain is concerning you, wound has increased drainage, wound has increased redness, wound has increased pain, you have any medication questions . "Provider Documentation" section prepared by Hortensia Mehta. . [place] Drug Monitoring Program Search Results: patient reviewed within database, no issues identified
[2018-03-18] MEDS: PANTOprazole SOD 40 MG TAB PO SCH (10:36)
[2018-03-18 12:06] VITALS: BP 148/77; PULSE 88; TEMP 36.7; O2SAT 95
[2018-03-18 15:24] VITALS: BP 153/76; PULSE 92; TEMP 37.2; O2SAT 91
--- NOTE | 2018-03-18 17:59 | Progress Note ---
Progress Note Date of Service Mar 18, 2018. Progress Note Nausea without vomiting. Diarrhea. Unable to do PT. She does have some pain but it is controlled by medicine. She has no chest pains or shortness of breath. She did not sleep well. Her distal neurovascular function is intact she has a palpable posterior tib pulse with normal motor function her dressing is dry. We will continue her admission. Encouraged eating before taking medicine. She had perhaps 6 or 8 bowel movements today. We will go ahead and check for C. difficile. Restart IV as she is not having adequate oral intake and has diarrhea is and is at risk for dehydration.
[2018-03-18] MEDS: LACTATED RINGER'S 1000ML 1,000 ML IV SCH (18:03)
[2018-03-18] MEDS: HYDROCODONE/ACETAMIN 5/325MG TAB PO PRN ×2 (18:04→22:40)
[2018-03-18] MEDS: LORATADINE 10 MG TAB PO SCH (21:09)
[2018-03-18] MEDS: CALCIUM 600MG + VIT D 400 IU TAB PO SCH (21:09)
[2018-03-18] MEDS: ASPIRIN 81 MG ECTAB PO SCH (21:09)
[2018-03-18 22:50] VITALS: BP 137/77; PULSE 88; TEMP 36.7; O2SAT 96
[2018-03-19] MEDS: HYDROCODONE/ACETAMIN 5/325MG TAB PO PRN ×4 (02:39→16:10)
[2018-03-19] MEDS: LEVOTHYROXINE 75 MCG TAB PO SCH (05:40)
[2018-03-19] MEDS: LACTATED RINGER'S 1000ML 1,000 ML IV SCH (05:40)
[2018-03-19 07:00] VITALS: BP 132/74; PULSE 79; TEMP 36.5; O2SAT 95
[2018-03-19 07:50] LABS: CREATININE 0.51 mg/dl (0.60-1.20)
[2018-03-19] MEDS: ENOXAPARIN 30 MG/0.3 ML SYR SQ SCH (08:11)
[2018-03-19] MEDS: DOCUSATE SODIUM 100 MG CAP PO SCH (09:00)
[2018-03-19] MEDS: GABAPENTIN 600 MG TAB PO SCH ×2 (09:27→13:47)
[2018-03-19] MEDS: MULTIVITAMIN TAB PO SCH (09:28)
[2018-03-19] MEDS: ASCORBIC ACID 500 MG TAB PO SCH (09:28)
[2018-03-19] MEDS: PANTOprazole SOD 40 MG TAB PO SCH (09:28)
--- NOTE | 2018-03-19 10:47 | PROGRESS NOTE ---
DATE: 03/19/2018 SUBJECTIVE: She is feeling much better today. No nausea or vomiting. No chest pains, abdominal pains, or shortness of breath. She has not had any diarrhea or bowel movement since yesterday. She is not lightheaded or dizzy and is urinating frequently. Knee pain is present but controlled. PHYSICAL EXAMINATION: VITAL SIGNS: Afebrile, vital signs are stable. HEART: She is not tachycardic. EXTREMITIES: She has some minor blistering on the medial side of her incision. There is no tense hemarthrosis. She has an appropriate amount of swelling. The leg is cleaned and new dressing is applied. There is no erythema. Her distal neurovascular function is intact with normal strength and 1+ posterior tib pulse. Urine output 800 mL. Her PRP is within normal limits except for slightly low calcium, slightly high glucose, and a creatinine of 0.51. PT reports that she did well. IMPRESSION: 1. Diarrhea, resolved. She did not get a C. diff done as she did not have any further diarrhea. If she does have further diarrhea, she will let us know. 2. Total knee arthroplasty. PLAN: She is doing well and is stable for discharge. She will be seeing home health. Follow up with me as scheduled. We talked about do's and don'ts in terms of wound care, bathing, and activity levels. She will be on her Lovenox plus her regular medications, stool softener, and a pain pill.
[2018-03-19 15:04] VITALS: BP 107/67; PULSE 90; TEMP 36.7; O2SAT 90
--- NOTE | 2018-03-24 16:12 | Discharge Summary ---
Discharge Summary Date of Service Mar 19, 2018. Discharge Summary Admission Date: Mar 17, 2018 at 06:30 Discharge Date: Mar 19, 2018 Discharge Disposition: Home with services Principal Diagnosis: DJD right knee Secondary Diagnoses/Problems: Rosacea, hypothyroidism, GERD Procedures: Right TKA by Dr. Arango on 03/17/18 Pending Studies/Follow-Up: You have a follow up with Dr. Arango on 04/01/18 at 12:45 p.m. You have a scheduled follow up appointment with physical therapy on 04/02/18 at 10:30 a.m. Medication Reconciliation New Medications: Ondasetron Odt (Zofran Odt) 4 Mg Tab 4 MG SL Q6H for Nausea, #10 TAB Enoxaparin (Lovenox) 30 Mg/0.3 Ml Inj 30 MG SQ Q12H for 14 Days, #28 SYR 1 Refill Hydrocodone/Acetaminophen 5MG/325MG (Elbert 5MG/325MG) Tab 1-2 TAB PO Q4H PRN for Pain, #30 TAB 0 Refills PRN PAIN Tramadol HCl (Tramadol HCl) 50 Mg Tab 50-100 MG PO Q4H PRN for Pain, #30 TAB 0 Refills Continued Medications: Ascorbic Acid (Vitamin C) 500 Mg Cap 1 CAP PO BID Aspirin (Aspirin Ec) 81 Mg Tab 81 MG PO HS Calcium Citrate-Vitamin D (Calcium Citrate + D) 1 Tab Tab 1 TAB PO QPM Coenzyme Q10 (Ubidecarenone) (Co Q-10) 75 Mg Cap 1 CAP PO BID, CAP Doxycycline Monohydrate (Monodox) 100 Mg Cap 50 MG PO BID, CAP Gabapentin (Neurontin) 300 Mg Cap 600 MG PO TID, CAP Levothyroxine Sodium (Levothyroxine Sodium) 75 Mcg Tab 1 TAB PO QAM, TAB Loratadine (Claritin) 10 Mg Tab 10 MG PO HS, TAB Multivitamin (Multivitamin) Tab 1 TAB PO QAM, TAB Omeprazole (Prilosec) 20 Mg Cap 20 MG PO QPM, CAP Valacyclovir (Valtrex) 500 Mg Tab 500 MG PO BID PRN for UD, TAB [Metronidazole Gel] () 1 DOSE TOP UD Discontinued Medications: Diclofenac Sodium (Topical) (Voltaren 1% Top Gel) 1 % Gel 1 DOSE TD DIRECTED Seminary-3 Fatty Acids (Seminary 3) 1 Cap Cap 1 CAP PO QAM Red Yeast Rice Extract (Red Yeast Rice) 300 Mg Cap 600 MG PO BID [Osteobiflex] () 1 CAP PO BID Admission Information HPI (per Admitting provider): Mrs. Akbar is a pleasant 72-year-old female who is here today for preoperative history and physical. She is scheduled for elective right total knee arthroplasty by Dr. Arango on March 17, 2018. Her surgery will be performed at the [facility]. She states that she has long- standing bilateral knee pain, right greater than left. He has been ongoing for many years. Over the last 6-12 months both knees have progressively worsened. Most of her pain on her right knee is on the inside aspect of the knee. Her pain is increased with activity and weightbearing. She does have decreasing activities of daily living due to pain in both of her knees. She has pain with range of motion and limited motion of her right knee due to pain. Aggravating activities include walking, going up and down steps. She gets stiffness after resting in one position for a period of time. She states it does take a couple steps to kind of loosen things up. Prior treatments include nonsteroidal anti- inflammatory drugs, outpatient physical therapy, corticosteroid injections and viscous supplementation. All these previous treatments provide little to no relief at this point. Due to her failure of conservative treatment and persistent and progressively worsening symptoms she would like to proceed with an elective total knee arthroplasty of her right knee. Physical Exam (per Admitting): General Appearance: WD/WN, no apparent distress Head: normocephalic, atraumatic Eyes: normal inspection, PERRL, EOMI, sclerae normal ENT: normal ENT inspection, hearing grossly normal, TMs normal, pharynx normal Neck: supple, no adenopathy, no carotid bruits, trachea midline Respiratory/Chest: chest non-tender, lungs clear, normal breath sounds, no respiratory distress, no accessory muscle use Cardiovascular: regular rate, rhythm, no edema, no murmur, normal peripheral pulses Abdomen/GI: normal bowel sounds, non tender, soft Extremities/Musculoskelatal: normal inspection, no calf tenderness, normal capillary refill, no pedal edema, normal range of motion, + pertinent finding ( She ambulance with a positive limp and the assistance of a cane. Varus alignment bilaterally with normal head movement. Active straight leg raise is intact. Passively, she has negative straight leg raise bilaterally. Strength is normal 5/5 throughout. Range of motion is 0/10/110 on the right, 0/10/105 on the left. Cruciate and collateral stability is intact. She is tenderness of the medial joint line.) Neurologic/Psych: no motor/sensory deficits, alert, normal mood/affect, normal reflexes, oriented x 3 Skin: normal color, warm/dry, no rash Lymphatic: no adenopathy Physical Exam (per Admitting): Height 5 feet 4 inches, weight 175 pounds Hospital Course Patient is a 72-year-old female he was admitted to [facility] after undergoing an elective right total knee arthroplasty by Dr. Arango on March 17, 2018. Her surgery was performed with IV sedation and spinal anesthesia. She also had a peripheral nerve block done preoperatively. She was given 2 g of IV Ancef for surgical prophylaxis which was continued for 24 hours after surgery. She tolerated the procedure well without any intraoperative complications. Postoperative x-rays show stable prosthesis of her right knee in neutral alignment. Postoperatively she tolerated a regular diet initially. On postoperative day 1 she did become nauseous after taking some tramadol on an empty stomach. Lovenox was prescribed 30 mg subcutaneously twice daily to start on the evening of surgery and continued for approximately 14 days postoperatively. She was allowed out of bed, weight-bear as tolerated right lower extremity with the assistance of a walker and a knee immobilizer. She was comfortable out of bed with minimal pain initially on postoperative day 1 she did develop some increased discomfort. Due to her nausea on postoperative day 1 she was unable to participate in occupational or physical therapy. She also had approximately 7 loose bowel movements. She was also going to the bathroom every 2 hours due to her IV fluids, IV was discontinued, but due to the diarrhea, re-inserted. A C. diff stool culture was ordered but never collected due to her diarrhea is subsiding yesterday afternoon. Her nausea did improve later into the day and she was able to tolerate food. She never vomited. On postoperative day 2 she felt much improved, her pain was controlled and she was tolerating a regular diet. She was able to participate in occupational therapy as well as physical therapy. She was comfortable out of bed with the assistance of a walker. Case management/family welfare social work professor also saw her and set her up to go home with home health. Her vitals remained stable during her inpatient stay. H&H was stable during her inpatient stay. She was deemed safe for home. Discharge instructions were provided. She was discharged to her home in stable condition with her family on March 19, 2018. She will have [facility] perform dressing changes and postoperative lab work as necessary. Follow-up appointments have been scheduled. Total time spent on discharge = This includes examination of the patient, discharge planning, medication reconciliation, and communication with other providers. Discharge Instructions Discharge Instructions Date of Service Mar 17, 2018. Admission Reason for Admission: Right Knee Osteoarthritis Discharge Discharge Diagnosis / Problem: Right knee osteoarthritis Discharge Goals Goal(s): Decrease discomfort, Improve function, Increase independence Activity Recommendations Activity Limitations: per Instructions/Follow-up section Weightbearing Status: Right weightbearing (as tolerated) . Instructions / Follow-Up Instructions / Follow-Up New Medicine: * You will likely be taking one or more of these medications: 1. Lovenox You will be on Lovenox for 2-4 weeks after surgery to prevent blood clots. Do not take anti- inflammatory pills (Advil or Aleve) while on Lovenox. Aspirin, 81 mg is OK. 2. Tramadol - Take, as directed, when needed, every 4-6 hours to control your pain. Alternate with Elbert. 3. Elbert Take, as directed, when you need it, every four to six hours to control your pain. 4. Colace & Senokot - Take to prevent constipation which can be caused by narcotics. These can be bought [id number] at the pharmacy 5. Zofran - take, every 4-6 hours as needed for nausea and/or vomiting * The most common side effects of pain medicine and iron are nausea and constipation. If nausea or constipation is too much of a problem or if you have any questions about your new medicines or doses, call [facility] at . We will try to help you manage these issues. VERY IMPORTANT TO READ AND REVIEW" Blood Clots and Blood Thinning Medicine: * You are given Lovenox during the immediate post-operative period to lessen the risk of blood clots forming in your legs and/or lungs. Lovenox is usually given for 2-4 weeks after surgery. * The prescription is for 30 mg syringes. At discharge, you should understand your dose and take it all at the same time every day. * You need to get your blood checked on Friday March 23, 2018 or as directed. Physical Therapy: * Do your physical therapy at home. These are the exercises you learned while in the hospital (quad sets, leg raises, calf pumps, gluteal squeezes, knee bending, and heel props.) You should do these exercises 3-4 times per day. * You will either go to inpatient rehab ([facility]), home with Home Therapy and nursing or home with outpatient rehab. You should do rehab with the therapist 2-3 times per week. You should do therapy on your own daily. * You may bear full weight on your leg with crutches or walker unless otherwise advised. Home Exercise: * You were shown a series of exercises (heel props, heel slides, etc.) in the hospital. Do these exercises three to four times each day including the exercises you were shown in physical therapy. Walking: * You may be up for short periods of time. Standing and walking for 1-2 hours at a time is usually okay. You should not stand or walk for excessive periods of time as this may cause increased pain and swelling. SELF CARE INSTRUCTIONS AFTER TOTAL KNEE REPLACEMENT A. You may need to continue a physical therapy program after discharge from the hospital. There are several options available to you. Your doctor will assist you in selecting the best one for you. 1. An out-patient facility 2 to 3 times a week for therapy or home therapy. 2. Continue working on all exercises taught to you in the hospital. Your goals should be to increase bending of your knee to 90 degrees and beyond and to fully straighten your knee. B. Your therapist will notify you when you are able to progress from a walker to a cane. C. Wear TEDS as much as possible.~ They may be removed at night for laundering. D. Do not place a pillow behind your knee when resting. A pillow at your ankle is okay. E. Ice your knee 15-20 minutes every 2-3 hours and elevate it above the level of your heart. F. You may shower on the fourth day after surgery using regular soap and water. Do not submerge until the wound is completely healed (approximately 2 weeks ). Until the fourth day after surgery, cover the incision/bandage with a bag or plastic wrap. G. Anyone who is touching your surgical incision area should wash their hands and wear gloves. H. Keep your incision covered with gauze pads under the ROGER hose until it is dry. VERY IMPORTANT TO READ AND REVIEW A. YOU WILL BE GIVEN AN ORDER AT DISCHARGE FOR CBC (BLOOD WORK). PLEASE HAVE THIS DONE INSTRUCTED. IF YOU ARE GOING TO OUTPATIENT PHYSICAL THERAPY, YOU WILL NEED TO GO TO OUTPATIENT TESTING TO HAVE IT DRAWN. B. There are a few signs you need to watch for after you are home. Call [facility] if you notice any of the followin. Increased severe knee pain. Some pain is expected especially when you exercise. 2. Increased swelling in your leg or knee; pain or swelling of the calf muscle in either lower leg. 3. Any fluid drainage from the incision. 4. Shortness of breath or chest pain. 5. Numbness and tingling in the surgical extremity C. Please call [facility] at if you have any concerns or questions about your operation or recovery. The doctor or his nurse will return your call promptly. D. Do not have any elective dental work or other elective procedures done for 6 weeks after your knee replacement. When you have any invasive procedure (dental cleaning, extraction, colonoscopy etc) performed, you will need to take antibiotics to prevent infection from developing in your artificial joint. Tell your other health care providers you have an artificial joint. My office will supply you with further information and the antibiotics. Call your doctor if: * Temperature above 101 degrees F. * Pain not relieved by pain medicine ordered. * Increased drainage or redness from incision. * Notify your doctor with any questions or concerns. Follow-up Visit: You will follow-up with Dr. Arango 10-14 days after surgery. The office number is . You have a follow up with Dr. Arango on 04/01/18 at 12:45 p.m. You have a scheduled follow up appointment with physical therapy on 04/02/18 at 10:30 a.m. Keep dressings on right knee while draining. May shower on Friday, remove dressings prior and reapply dressings after showering. Call our office if drainage persists after the weekend. Avoid all tobacco products. If you need help to stop smoking, call [facility]IT[facility] at . This is a free call. Current Hospital Diet Patient's current hospital diet: Regular Diet Discharge Diet Recommended Diet: Regular Diet Procedures Procedures Performed: Right Total Knee Arthroplasty Pending Studies Studies pending at discharge: no Medical Emergencies . Who to Call and When: Medical Emergencies: If at any time you feel your situation is an emergency, please call 911 immediately. . Non-Emergent Contact Non-Emergency issues call your: Surgeon Call Non-Emergent contact if: temperature is above 101, your pain is not controlled, your pain is worsening, your pain is unusual for you, your pain is concerning you, wound has increased drainage, wound has increased redness, wound has increased pain, you have any medication questions . "Provider Documentation" section prepared by Hortensia Mehta. . [place] Drug Monitoring Program Search Results: patient reviewed within database, no issues identified
== END 2018-03-19 16:45 | disposition home health service (06) | DRG 470 ==
LOC: C.ACU 05:01 → C.3E 06:30 → ENRESERV 10:12
PROVIDERS: ADMIT Physical Medicine & Rehabilitation Sports Medicine; ATTEND Physical Medicine & Rehabilitation Sports Medicine
PROC: 0SRC0J9 Replacement of Right Knee Joint with Synthetic Substitute, Cemented, Open Approach (ICD-10-PCS; principal; 2018-03-17 07:00)
DX: M17.11 Unilateral primary osteoarthritis, right knee (principal); E03.9 Hypothyroidism, unspecified; Z87.442 Personal history of urinary calculi; K21.9 Gastro-esophageal reflux disease without esophagitis; Z98.1 Arthrodesis status; Z82.49 Family history of ischemic heart disease and other diseases of the circulatory system; Z88.2 Allergy status to sulfonamides; Z88.5 Allergy status to narcotic agent; L71.9 Rosacea, unspecified; R19.7 Diarrhea, unspecified; R11.0 Nausea; T40.4X5A Adverse effect of other synthetic narcotics, initial encounter; Y92.230 Patient room in hospital as the place of occurrence of the external cause

== ENCOUNTER 2019-05-25 08:40 | Inpatient (IN) ==
--- NOTE | 2019-04-28 11:17 | Anesthesiology Consultation ---
Date of Service April 28, 2019 Assessment & Plan (1) Encounter for pre-operative examination: - Awaiting review preop testing. - Awaiting surgeon-ordered PCP clearance scheduled 05/12 (Wai Spaulding; JOSH). Chart Review Chart Review: Patient seen in Pre Admission Testing Teaching & Discussion Pre-Anesthesia Teaching/Discussion Notes: Instructed NPO after midnight before surgery,except medications with 15 cc of water. Medication instructions provided according to the PAT guidelines. History Surgery Operation Date: 05/25/19 09:50 Proposed Procedures p Left Total Knee Arthroplasty - Gary Arango MD Height/Weight Height: 5 ft 4 in Weight: 80.9 kg Allergies Allergy/AdvReac Type Severity Reaction Status Date / Time Sulfa (Sulfonamide Allergy Unknown HIVES Verified 04/26/19 13:53 Antibiotics) oxycodone AdvReac Unknown HALLUCINATI Verified 04/28/19 11:23 ONS Medications Home Medications Medication Instructions Recorded Confirmed Last Taken amoxicillin 2,000 mg PO UD 04/26/19 04/26/19 Unknown ascorbic acid (vitamin C) [Vitamin 500 mg PO BID 04/26/19 04/26/19 Unknown C] biotin 5,000 mcg SUBLINGUAL QAM 04/26/19 04/26/19 Unknown calcium carbonate-vitamin D3 1 cap PO QPM 04/26/19 04/26/19 Unknown [Calcium 600 + D(3)] doxycycline monohydrate 50 mg PO BID 04/26/19 04/26/19 Unknown gabapentin 300 mg PO TID 04/26/19 04/26/19 Unknown vqeyrttc-rrpdi-xmajf-CF borate 1 tab PO BID 04/26/19 04/26/19 Unknown [[facility]] levothyroxine 75 mcg PO QAM 04/26/19 04/26/19 Unknown loratadine 10 mg PO HS 04/26/19 04/26/19 Unknown metronidazole 1 applic TOPICAL HS 04/26/19 04/26/19 Unknown multivitamin 1 tab PO QAM 04/26/19 04/26/19 Unknown omega 3,6,9 combination no.7 1 mg PO BID 04/26/19 04/26/19 Unknown omeprazole 20 mg PO QPM 04/26/19 04/26/19 Unknown ondansetron HCl [Zofran] 4 mg PO TID PRN 04/26/19 04/26/19 Unknown valacyclovir [Valtrex] 500 mg PO BID PRN 04/26/19 04/26/19 Unknown Past Medical History Medical History Asthma childhood (no recent issues) GERD (gastroesophageal reflux disease) controlled Hiatal hernia Hypothyroidism Osteoarthritis Exercise / Class Metabolic Activity III < 4 Walking/Shop/Light housework Past Family History Family History Father Family history of reaction to anesthesia HALLUNICATIONS-ELDERLY Brother Family history of diabetes mellitus Past Surgical History Surgical History Fusion of spine X 2 LOWER BACK History of adenoidectomy History of breast biopsy BENIGN CYSTS History of cholecystectomy History of laparoscopy FOR CYSTS History of tonsillectomy History of total knee replacement R TKA Past Anesthesia History No Hx of Anesthesia Complications Father: hallucinations History of PONV No Hx of PONV and No Hx of Motion Sickness Social History Smoking Status: Never smoker Do You Dip or Chew Tobacco: No Hx Alcohol Use: No Hx Substance Use: No Review of Systems Reflux controlled. Patient denies chest pain, shortness of breath, cough, wheezing, palpitations. Physical Exam Vital Signs VITALS BP 145/83 P 63 TEMP 98.0 SP02 96%RA RESP 16 PHYSICAL Full neck and c-spine range of motion. Full TMJ range of motion. TMD 4 finger breaths Mallampati Score 2 Dentition: intact, crowns including upper front Lungs: clear throughout to auscultation Cardiac: regular rate and rhythm, no murmurs noted Spine: normal Carotid arteries: negative bruit Extremities: no edema
--- NOTE | 2019-04-28 11:17 | PAT Medication Instructions ---
Medication Instructions Date of Service April 28, 2019 Home Medications amoxicillin 2,000 mg PO UD ascorbic acid (vitamin C) [Vitamin C] 500 mg PO BID biotin 5,000 mcg SUBLINGUAL QAM calcium carbonate-vitamin D3 [Calcium 600 + D(3)] 1 cap PO QPM doxycycline monohydrate 50 mg PO BID gabapentin 300 mg PO TID ccopxvhk-yccfh-dxedt-CF borate [[facility]] 1 tab PO BID levothyroxine 75 mcg PO QAM loratadine 10 mg PO HS metronidazole 1 applic TOPICAL HS multivitamin 1 tab PO QAM omega 3,6,9 combination no.7 1 mg PO BID omeprazole 20 mg PO QPM ondansetron HCl [Zofran] 4 mg PO TID PRN valacyclovir [Valtrex] 500 mg PO BID PRN Continue as directed amoxicillin 2,000 mg PO UD STOP taking 2 weeks before surgery (or as soon as possible if surgery is within 2 weeks) biotin 5,000 mcg SUBLINGUAL QAM nmvwodlw-kvnfa-gfjbp-CF borate [[facility]] 1 tab PO BID omega 3,6,9 combination no.7 1 mg PO BID STOP taking 24 hours before surgery metronidazole 1 applic TOPICAL HS DO NOT take the morning of surgery ascorbic acid (vitamin C) [Vitamin C] 500 mg PO BID multivitamin 1 tab PO QAM Take morning of surgery With a small sip of water, OTHERWISE NOTHING TO EAT OR DRINK AFTER MIDNIGHT: doxycycline monohydrate 50 mg PO BID gabapentin 300 mg PO TID levothyroxine 75 mcg PO QAM ondansetron HCl [Zofran] 4 mg PO TID PRN (if needed) valacyclovir [Valtrex] 500 mg PO BID PRN (if needed) Take evening before surgery ascorbic acid (vitamin C) [Vitamin C] 500 mg PO BID calcium carbonate-vitamin D3 [Calcium 600 + D(3)] 1 cap PO QPM doxycycline monohydrate 50 mg PO BID gabapentin 300 mg PO TID loratadine 10 mg PO HS omeprazole 20 mg PO QPM ondansetron HCl [Zofran] 4 mg PO TID PRN (if needed) valacyclovir [Valtrex] 500 mg PO BID PRN (if needed) Other Notes If you have any questions please call us at [phone] or [phone] or [phone] or [phone]
--- NOTE | 2019-04-28 12:13 | XRay Report ---
XR chest Pre-admission PA/Lat HISTORY: 73 years-old Female PAT preoperative exam. No acute chest complaints reported. COMPARISON: Chest radiographs 02/27/2018 TECHNIQUE: PA and lateral views of the chest FINDINGS: Cardiomediastinal and hilar silhouettes are within normal limits. Moderate sized hiatal hernia. Aside plaque of the thoracic aortic arch. Mild right hemidiaphragmatic elevation. No pneumothorax, pleural effusion, focal airspace consolidation or overt pulmonary edema. Degenerative changes of the shoulde rs and spine. Partially imaged fusion hardware of the lumbar spine. Cholecystectomy. IMPRESSION: 1. No acute process. 2. Moderate hiatal hernia. The above report was generated using voice recognition software. It may contain grammatical, syntax o r spelling errors. Electronically signed by: Kenneth Woo M.D. 04/28/2019 12:12 PM
[2019-04-28 12:17] LABS: Basophils # (auto) 0.01 K/uL (0-0.2); Basophils % (auto) 0.2 %; Eosinophils # (auto) 0.14 K/uL (0-0.5); Eosinophils % (auto) 2.6 %; Hematocrit (blood only) 43.2 % (37-47); Immature Granulocytes # (auto) 0.01 K/uL (0.00-0.02); Immature Granulocytes % (auto) 0.2 %; Lymphocytes # (auto) 2.42 K/uL (1.2-3.4); Lymphocytes % (auto) 45.2 %; Mean Corpuscular Hgb Conc 32.4 g/dL (32-36); Mean Corpuscular Volume 86.4 fL (80-100); Mean Platelet Volume 9.9 fL (7.4-10.4); Monocytes % (auto) 5.6 %; Neutrophils # (auto) 2.47 K/uL (1.4-6.5); Neutrophils % (auto) 46.2 %; Platelet Count 251 K/uL (130-400); RDW Coefficient of Variation 13.2 % (11.5-14.5); RDW Standard Deviation 41.7 fL (36.4-46.3); White Blood Count 5.35 K/uL (4.8-10.8)
[2019-04-28 12:33] LABS: Partial Thromboplastin Time 28.4 Seconds (21.0-31.0); Prothrombin Time 10.3 Seconds (9.0-12.0)
[2019-04-28 13:28] LABS: BUN Creatinine Ratio 23.9 (10-20); Calcium 9.1 mg/dl (8.5-10.1); Creatinine Clr Calc Pharmacy 74.7 ml/min; Est GFR (African American) 99.9; Est GFR (Non-African American) 86.2; Potassium 3.8 mmol/L (3.5-5.1)
[~2019-05-25 08:40] MED LIST changes: +ACETAMINOPHEN 500 MG TAB PO SCH; -ASCO1CAP3 PO; -ASPI81TA28 PO; +BUPIVACAINE 0.25% 30 ML VIAL ONE; +BUPIVACAINE 0.5 % 5 MG/1 ML PF 10ML VIAL ONE; -CALC-279 PO; +CEFAZOLIN 2000MG 2,000 MG/15 ML SYR IV SCH; -CLR10 PO; -COEN75CA PO; +CeleBREX 200 MG CAP PO SCH; -DICL1GEL12 TD; -DOXY100C76 PO; +FAMOTIDINE 20 MG TAB PO SCH; -GABA-113 PO; +GABAPENTIN 300 MG CAP PO SCH; -LEVO75TA5 PO; +LR 500ML BOLUS, THEN 15ML/HR IV SCH; +LR 60ML/HR IV SCH; +METOCLOPRAMIDE HCL 10 MG TABLET PO SCH; -METRONIDAZOLE GEL TOP; -MULT-506 PO; -OMEG12006 PO; -OMEP20CA9 PO; -OSTEOBIFLEX PO; +OXYCODONE HCL 10 MG TABCR (OXYCONTIN) PO SCH; -RED1CAP5 PO; +ROPIVACAINE 0.5% HCL/PF 150 MG, BUPIVACAINE 0.5% MPF 30 ML, EPINEPHrine 0.15 MG, Ketoro... INFIL SCH; -ROPIVACAINE 5MG/ML 30 ML 150 MG, BUPIVACAINE 0.5% MPF INJ 30 ML, EpINEphrine HCL INJ 0.... INFIL SCH; +TRAMADOL HCL 50 MG TABLET PO SCH; +TRANEXAMIC ACID 1,000 MG **IV Intra-op IV SCH; +TRANEXAMIC ACID 1,000 MG **IV Pre-op IV SCH; +TRANEXAMIC ACID 1,000 MG x 1 **For Topical Use TOP SCH; -VALA500T60 PO; +cloNIDine HCL 0.1 MG/24 HR TRANSDERM SYS TD SCH; +dexAMETHasone 4 MG TAB PO SCH
[2019-05-25] MEDS ORDERED: fentaNYL citrate 100 MCG/2 ML VIAL ONE (09:03)
[2019-05-25] MEDS ORDERED: MIDAZOLAM HCL 1 MG/ML 2ML VIAL ONE (09:03)
[2019-05-25] MEDS ORDERED: ONDANSETRON INJ 2 MG/ML 2 ML VIAL ONE (10:00)
[2019-05-25] MEDS ORDERED: LIDOCAINE HCL 2% 2 ML VIAL/AMP(20MG/ML) INFIL ONE (10:00)
[2019-05-25] MEDS ORDERED: PROPOFOL IV EMULSION 10 MG/ML 20 ML VIAL IV ONE (10:01)
--- NOTE | 2019-05-25 11:04 | History & Physical Bridge Note ---
Date of Service May 25, 2019 History & Physical Bridge Note I have examined the patient, reviewed the History & Physical and in the interval since the performance of the History & Physical I have noted the following changes of clinical significance: no changes noted
[2019-05-25] MEDS ORDERED: ORTHO JOINT ANESTHETIC ONE (11:31)
[2019-05-25] MEDS ORDERED: BACITRACIN INJ 50,000 UNIT VIAL ONE (11:31)
[2019-05-25] MEDS ORDERED: ePHEDrine sulfate 50 MG/ML SYR ONE (13:42)
[2019-05-25] MEDS ORDERED: ONDANSETRON INJ 2 MG/ML 2 ML VIAL IV PRN ×2 (13:48→15:29)
[2019-05-25] MEDS ORDERED: fentaNYL citrate 100 MCG/2 ML VIAL IV PRN (13:48)
[2019-05-25] MEDS ORDERED: ATROPINE SULFATE 0.1 MG/ML 10ML SYR IV PRN (13:48)
[2019-05-25] MEDS ORDERED: ePHEDrine sulfate 50 MG/ML AMP IV PRN (13:48)
--- NOTE | 2019-05-25 14:16 | Operative Report ---
Post Operative Report Pre & Post Diagnosis Operation Date: 05/25/19 11:10 Pre-Op Diagnosis: Left Knee Osteoarthritis Post-Op Diagnosis: Left Knee Osteoarthritis I identified the patient and participated in the time-out.: Yes Procedure Operation Date: 05/25/19 11:10 Actual Procedures p Left Total Knee Arthroplasty(Left) - Gary Arango MD Surgeon Gary Arango MD Window Trimmer Apprentice Tyson Estimated Blood Loss 5 Findings Consistent with Post-Op Diagnosis Specimens Bone and soft tissue Anesthesia Type MAC Spinal Regional Disposition Accompanied Patient To Recovery: No Disposition: Recovery Room Indications Patient 73 years old. Status post successful right knee replacement. End-stage arthritis left knee refractory to nonsurgical methods of management. Treatment options risks and benefits discussed and she wanted to proceed with the knee replacement. Description of Procedure Informed consent obtained. Patient identified. She identified the operative site as the left knee. I marked with my initials. Preoperative surgical timeout was performed. A preop dose of IV antibiotics was given. She was positioned supine with a tourniquet on the left thigh and a bump under the left calf and left hip. Exam under anesthesia revealed range of motion 0/7/120. The knee was stable. The limb was prepped and draped in usual sterile fashion. DVT prophylaxis with foot pumps and postoperatively early mobility and Lovenox. Bony prominences inspected and padded. Limb exsanguinated with the Esmarch. Tourniquet inflated to 250 mmHg. A midline longitudinal incision was made followed by medial parapatellar arthrotomy. Synovial reflection in the lateral gutter was resected. A medial release was performed back around the posterior medial corner releasing the semimembranosus. There were large marginal osteophytes along the medial side of the knee which were excised. The cruciates were intact and they were excised as well. Soft tissue on the anterior aspect the distal femur was resected and the retropatellar fat pad was removed. The medial meniscus was partially deficient and there were large areas of grade 3 and small areas of grade 4 change on the medial femoral condyle and medial tibial plateau. There was a large area of chondrosis in the medial trochlea and grade 3 and 4 changes throughout the patella particularly on the medial facet. The lateral compartment was relatively normal. The knee was subluxated and a pilot manager hole was drilled into the tibia just anterior to the lateral tibial spine. The intramedullary ghislaine was advanced about three quarters of the way down the tibia but could not be advanced completely. The cutting block was applied. 0 degree. 10 mm off the lateral side corresponding to 4 mm medially. The extra medullary alignment ghislaine showed good slope and coronal plane alignment. This cut was made and sized to a 3. A pilot manager hole was drilled into the distal femur followed by the insertion of the distal femoral cutting block set to resect 14 mm of the 6 degree valgus angle. This cut was made. The extension gap was asymmetric 10 with full extension. The trans-epicondylar axis was marked out. The femur was sized with 3 and the external rotation drill holes were made. The size 3 anterior down cutting block was applied and the cuts were made protecting the collateral ligaments. The flexion gap was asymmetric 10. Osteophytes in the back of the knee were removed. The box cutting guide was applied lateralized and the box cut was made. The trial femur was applied. The tibia was prepared with the drill and keel punch. The component was aligned and the trial poly-was placed. The knee was stable full extension had 1+ LCL laxity in mid position and otherwise was stable. The patella was everted and large marginal osteophytes were removed. The patella measured 21 mm in thickness. The guide was set to preserve 14. The cut was made in the residual patellar thickness was 13. A 38 patella was aligned and the drill holes were made. Trialing was excellent with a no hands technique. The trial components were removed. The canals were plugged and Ortho joint mix was injected in the back of the knee. Betadine lavage was performed along with copious pulsatile lavage to prepare the bony surfaces with drilling of sclerotic bone on the medial tibia. The components were cemented in place. Femur tibia and patella. The knee was helpful extension until the cement hardened and tourniquet was let down after 80 minutes of inflation. There is no significant bleeding. Meticulous hemostasis was performed. The back of the knee was inspected for cement and I thoroughly irrigated. Stability pattern was as mentioned above and the final polyethylene insert was applied. The soft tissues were kept moist throughout the procedure. Composite patellar thickness was 22 mm. The extensor mechanism was closed above the equator of the patella with interrupted #2 FiberWire and below with interrupted #1 Vicryl. Skin was closed in layers with zero 2-0 Vicryl and acrlos on the skin. Soft sterile dressings applied Xeroform 4 x 4's ABD and full-length Leonard wrap with knee immobilizer. She was awakened from anesthesia without difficulty and taken to the recovery room in stable condition. There were no complications. Blood loss was 5 cc of the resected bone and soft tissue were sent for specimen. Counts were correct. At the conclusion the operation spoke patient's family informed of my findings and postoperative instructions were given. [place] assisted flexion with the extensor mechanism closed was 120 degrees. She will be rehabilitated according to the standard total knee pathway. The components inserted with a [employer] PFC Sigma rotating platform knee size 3 left posterior stabilized femur a size 3 mobile-bearing keeled tibial tray a size 10 mm thick by 3 polyethylene insert and a 38 mm oval dome patella. I attest to the content of the Intraoperative Record and any orders documented therein. Any exceptions are noted below.
--- NOTE | 2019-05-25 14:28 | Operative Report ---
Post Operative Report Pre & Post Diagnosis Operation Date: 05/25/19 11:10 Pre-Op Diagnosis: Left Knee Osteoarthritis Post-Op Diagnosis: Left Knee Osteoarthritis I identified the patient and participated in the time-out.: Yes Procedure Operation Date: 05/25/19 11:10 Actual Procedures p Left Total Knee Arthroplasty(Left) - Gary Arango MD Surgeon Gary Arango M.D. Tool Design Drafter Tyson HAN Estimated Blood Loss 5 Findings Consistent with Post-Op Diagnosis Specimens bone and soft tissue Anesthesia Type MAC Spinal Regional Description of Procedure Patient was taken to the operating room, placed under general anesthesia. Patient was given 2gm IV Ancef for surgical prophylaxis. Time out performed, prepped and draped in routine sterile fashion. I was present during the entire case, please see Dr. Arango's operative report for further detail. I assisted with positioning, retraction, implantation of hardware, closure and dressings. Patient was awakened and taken to the recovery room in stable condition. I attest to the content of the Intraoperative Record and any orders documented therein. Any exceptions are noted below.
--- NOTE | 2019-05-25 15:12 | Anesthesiology Progress Note ---
Date of Service May 25, 2019 Anesthesia Post Procedure Vital Signs Vital Signs: Temp Pulse Pulse Resp BP Pulse Ox 05/25/19 15:05 36.5 C 74 15 125/67 97 05/25/19 14:55 36.5 C 74 18 136/74 96 05/25/19 14:45 36.5 C 78 16 135/78 96 05/25/19 14:35 83 16 141/71 H 96 05/25/19 14:25 77 14 135/82 98 05/25/19 14:18 36.5 C 87 20 141/71 H 93 05/25/19 09:20 36.5 C 76 20 122/77 96 Pain Intensity Left Knee: Pain Intensity: 0 Back: Pain Intensity: 3 Transfer of Care Handoff Completed per policy Notes Mental Status: alert / awake / arousable and participated in evaluation Nausea / Vomiting: adequately controlled Pain: adequately controlled Airway Patency, RR, SpO2: stable & adequate BP & HR: stable & adequate Hydration State: stable & adequate Neuraxial Anesthesia: was administered and sensory block is resolving Anesthetic Complications: no major complications apparent and Pt Satisfied with anesthetic care
--- NOTE | 2019-05-25 15:15 | XRay Report ---
XR knee LT 2V routine CLINICAL HISTORY: Surgical Post Op postoperative COMPARISON: 04/20/2019 DISCUSSION: Anatomic alignment posttotal left knee arthroplasty. Could contact between prosthetic and underlying bone. Expected soft tissue postoperative change IMPRESSION: Anatomic alignment posttotal left knee arthroplasty. The above report was generated using voice recognition software. It may contain grammatical, syntax or spelling errors. Electronically signed by: Dylan Lima M.D. 05/25/2019 3:00 PM
[2019-05-25] MEDS ORDERED: HYDROmorphone INJ 0.5 MG/0.5 ML SYR IV PRN (15:29)
[2019-05-25] MEDS ORDERED: SODIUM CHLORIDE 0.9% 1000ML 1,000 ML IV SCH (15:29)
[2019-05-25] MEDS ORDERED: HydrALAZINE 10 MG TAB PO PRN (15:29)
[2019-05-25] MEDS ORDERED: NALOXONE HCL 0.4 MG/1 ML VIAL/CARP IV PRN (15:29)
[2019-05-25] MEDS ORDERED: bisacodyL 10 MG SUPP PR PRN (15:29)
[2019-05-25] MEDS ORDERED: TRAMADOL HCL 50 MG TABLET PO PRN (15:29)
[2019-05-25] MEDS ORDERED: MAGNESIUM HYDROXIDE SUSP 30 ML UDC PO PRN (15:29)
[2019-05-25] MEDS ORDERED: HYDROCODONE/ACETAMOPHEN 5/325MG TAB PO PRN (15:29)
[2019-05-25] MEDS ORDERED: METOCLOPRAMIDE HCL INJ 5 MG/ML 2 ML VIAL IV PRN (15:29)
[2019-05-25] MEDS ORDERED: CALCIUM 600MG + VIT D 400 IU TAB PO SCH ×2 (16:30→21:00)
[2019-05-25] MEDS: CHECK CLONIDINE PATCH PLACEMENT SCH ×3 (17:01→21:27)
[2019-05-25] MEDS: KETOROLAC TROMETHAMINE 15 MG/ML VIAL IV SCH ×2 (17:16→21:26)
[2019-05-25] MEDS: ACETAMINOPHEN 500 MG TAB PO SCH (17:16)
--- NOTE | 2019-05-25 19:03 | Orthopedic Progress Note ---
Date of Service May 25, 2019 Assessment & Plan (1) Right knee DJD: Present on Admission?: Yes (2) S/P total knee arthroplasty: Doing well. Postop x-rays show no complication. Components are in good position. Continue routine postop surgical management. Elevation icing physical therapy. I will check on her in the morning. Present on Admission?: No Subjective Resting comfortably in bed. Pain is well controlled. Tolerating a diet. Has been to the bathroom. Physical Exam Physical Exam: Dorsalis pedis is 1+. Sensation is intact but diminished compared to the opposite foot throughout. She has 5- out of 5 ankle and toe plantarflexion and dorsiflexion strength. The dressing is clean and dry. Results & Data Vital Signs (Past 12 Hours) Vital Signs Temp Pulse Pulse Resp BP Pulse Ox 05/25/19 17:33 36.3 C L 79 16 131/74 100 05/25/19 16:33 36.3 C L 78 16 122/76 96 05/25/19 16:02 36.4 C L 73 16 123/75 96 05/25/19 15:30 36.5 C 78 16 125/77 96 05/25/19 15:20 36.5 C 77 16 134/71 96 05/25/19 15:05 36.5 C 74 15 125/67 97 05/25/19 14:55 36.5 C 74 18 136/74 96 05/25/19 14:45 36.5 C 78 16 135/78 96 05/25/19 14:35 83 16 141/71 H 96 05/25/19 14:25 77 14 135/82 98 05/25/19 14:18 36.5 C 87 20 141/71 H 93 05/25/19 09:20 36.5 C 76 20 122/77 96
[2019-05-25] MEDS: CEFAZOLIN 2000MG 2,000 MG/15 ML SYR IV SCH (19:46)
[2019-05-25] MEDS ORDERED: SENNA 8.6 MG TAB PO SCH (21:00)
[2019-05-25] MEDS ORDERED: PANTOprazole 40 MG TAB PO SCH (21:00)
[2019-05-25] MEDS ORDERED: LORATADINE 10 MG TAB PO SCH (21:00)
[2019-05-25] MEDS: DOXYCYCLINE HYCLATE 50 MG CAP PO SCH (21:25)
[2019-05-25] MEDS: GABAPENTIN 300 MG CAP PO SCH (21:26)
[2019-05-25] MEDS: ASCORBIC ACID 500 MG TAB PO SCH (21:26)
[2019-05-25] MEDS: DOCUSATE SODIUM 100 MG CAP PO SCH (21:26)
[2019-05-26] MEDS: CEFAZOLIN 2000MG 2,000 MG/15 ML SYR IV SCH (04:33)
[2019-05-26] MEDS: KETOROLAC TROMETHAMINE 15 MG/ML VIAL IV SCH ×2 (04:33→09:58)
[2019-05-26] MEDS: ACETAMINOPHEN 500 MG TAB PO SCH ×2 (05:25→13:46)
[2019-05-26 05:46] LABS: Hematocrit (blood only) 35.6 % (37-47); Hemoglobin 11.8 g/dL (12.0-16.0); Mean Corpuscular Hemoglobin 27.9 pg (25-34); Mean Corpuscular Hgb Conc 33.1 g/dL (32-36); Mean Corpuscular Volume 84.2 fL (80-100); Mean Platelet Volume 9.8 fL (7.4-10.4); Platelet Count 233 K/uL (130-400); RDW Coefficient of Variation 13.5 % (11.5-14.5); RDW Standard Deviation 40.7 fL (36.4-46.3); Red Blood Count 4.23 M/uL (4.2-5.4); White Blood Count 14.94 K/uL (4.8-10.8)
[2019-05-26 06:15] LABS: BUN Creatinine Ratio 23.8 (10-20); Calcium 8.3 mg/dl (8.5-10.1); Creatinine Clr Calc Pharmacy 64.4 ml/min; Est GFR (African American) 85.5; Est GFR (Non-African American) 73.7; Potassium 3.8 mmol/L (3.5-5.1)
[2019-05-26] MEDS ORDERED: LEVOTHYROXINE SODIUM 75 MCG TABLET PO SCH (06:30)
[2019-05-26] MEDS ORDERED: dexAMETHasone 4 MG TAB PO SCH (08:00)
[2019-05-26] MEDS: DOCUSATE SODIUM 100 MG CAP PO SCH (09:00)
[2019-05-26] MEDS ORDERED: ENOXAPARIN INJ 30 MG/0.3 ML SYR SQ SCH (09:00)
[2019-05-26] MEDS ORDERED: MULTIVITAMIN TAB PO SCH (09:00)
[2019-05-26] MEDS ORDERED: NON-FORMULARY MEDICATION (Biotin 5,000 MCG) SL SCH (09:00)
[2019-05-26] MEDS: DOXYCYCLINE HYCLATE 50 MG CAP PO SCH (09:00)
[2019-05-26] MEDS: GABAPENTIN 300 MG CAP PO SCH ×2 (09:01→13:46)
[2019-05-26] MEDS: CHECK CLONIDINE PATCH PLACEMENT SCH (09:01)
[2019-05-26] MEDS: ASCORBIC ACID 500 MG TAB PO SCH (09:02)
--- NOTE | 2019-05-26 10:45 | Orthopedic Progress Note ---
Date of Service May 26, 2019 Assessment & Plan (1) Right knee DJD: Present on Admission?: Yes (2) S/P total knee arthroplasty: Doing well. We will see how she does after PT today. When she is ready for discharge will have home health and nursing arranged. We talked about follow-up in the office in outpatient PT. Lab work, wound care dressing changes discussed. Present on Admission?: Yes Subjective Sitting in a chair. Awaiting PT. Difficulty sleeping. Pain reasonably well controlled. No nausea vomiting. No numbness tingling. Physical Exam Physical Exam: Strength 5 out of 5 with ankle and toe plantarflexion and dorsiflexion. Sensation normal throughout the foot and posterior tib pulses 1+. Dressing is clean and dry. Results & Data Vital Signs (Past 12 Hours) Vital Signs Temp Pulse Resp BP Pulse Ox 05/26/19 07:02 36.6 C 79 16 110/57 L 92 05/26/19 03:41 36.9 C 90 16 120/70 92 05/25/19 23:09 36.8 C 81 16 117/66 92 Laboratory Results Laboratory Results WBC 14.94 K/uL (4.8-10.8) H 05/26/19 05:27 RBC 4.23 M/uL (4.2-5.4) 05/26/19 05:27 Hgb 11.8 g/dL (12.0-16.0) L 05/26/19 05:27 Hct 35.6 % (37-47) L 05/26/19 05:27 MCV 84.2 fL (80-100) 05/26/19 05:27 MCH 27.9 pg (25-34) 05/26/19 05:27 MCHC 33.1 g/dL (32-36) 05/26/19 05:27 RDW Std Deviation 40.7 fL (36.4-46.3) 05/26/19 05:27 RDW Coeff of [place] 13.5 % (11.5-14.5) 05/26/19 05:27 Plt Count 233 K/uL (130-400) 05/26/19 05:27 MPV 9.8 fL (7.4-10.4) 05/26/19 05:27 Immature Gran % (Auto) 0.2 % 04/28/19 11:36 Neut % (Auto) 46.2 % 04/28/19 11:36 Lymph % (Auto) 45.2 % 04/28/19 11:36 [place] % (Auto) 5.6 % 04/28/19 11:36 Eos % (Auto) 2.6 % 04/28/19 11:36 Baso % (Auto) 0.2 % 04/28/19 11:36 Immature Gran # (Auto) 0.01 K/uL (0.00-0.02) 04/28/19 11:36 Neut # (Auto) 2.47 K/uL (1.4-6.5) 04/28/19 11:36 Lymph # (Auto) 2.42 K/uL (1.2-3.4) 04/28/19 11:36 [place] # (Auto) 0.30 K/uL (0.11-0.59) 04/28/19 11:36 Eos # (Auto) 0.14 K/uL (0-0.5) 04/28/19 11:36 Baso # (Auto) 0.01 K/uL (0-0.2) 04/28/19 11:36 PT 10.3 Seconds (9.0-12.0) 04/28/19 11:36 INR 1.0 (0.9-1.1) 04/28/19 11:36 APTT 28.4 Seconds (21.0-31.0) 04/28/19 11:36 PTT Ratio 1.0 04/28/19 11:36 Sodium 138 mmol/L (136-145) 05/26/19 05:27 Potassium 3.8 mmol/L (3.5-5.1) 05/26/19 05:27 Chloride 107 mmol/L (98-107) 05/26/19 05:27 Carbon Dioxide 25 mmol/L (21-32) 05/26/19 05:27 Anion Gap 6.0 (3-11) 05/26/19 05:27 BUN 19 mg/dl (7-18) H 05/26/19 05:27 Creatinine 0.79 mg/dl (0.6-1.2) 05/26/19 05:27 Est Cr Clr Drug Dosing 64.4 ml/min 05/26/19 05:27 Est GFR ( Amer) 85.5 05/26/19 05:27 Est GFR (Non-Af Amer) 73.7 05/26/19 05:27 BUN/Creatinine Ratio 23.8 (10-20) H 05/26/19 05:27 Glucose 150 mg/dl (70-99) H 05/26/19 05:27 Calcium 8.3 mg/dl (8.5-10.1) L 05/26/19 05:27 Blood Type O Positive 04/28/19 11:36 Antibody Screen NEGATIVE 04/28/19 11:36
--- NOTE | 2019-05-26 13:33 | Discharge Summary ---
Date of Service May 26, 2019 Discharge Data Consultations 05/25/19 15:29 Consult Case Management - Discharge Planning Routine Procedures Performed Operation Date: 05/25/19 11:10 Actual Procedures p Left Total Knee Arthroplasty(Left) - Gary Arango MD Hospital Course (1) S/P total knee arthroplasty: Patient was admitted to [facility] after undergoing elective left total knee arthroplasty by Dr. Arango on May 25, 2019. She tolerated the procedure well without any intraoperative or postoperative complications. Her procedure was performed with spinal anesthesia peripheral nerve block. She was given 2 g of IV Ancef for surgical prophylaxis which was continued for 24 hours after surgery. Postoperative x-rays confirm neutral alignment of the joint and a stable prosthesis. She was allowed out of bed, weightbearing as tolerated on her left lower extremity with the assistance of a walker. I knee immobilizer was used for 24 hours after surgery. She was given a regular diet. She tolerated her diet during her inpatient stay. Vital signs remained stable. She remained afebrile. Her pain was controlled during her inpatient stay with oral Tylenol, tramadol, Walker, IV Dilaudid and IV Toradol. Her pain was well-controlled with oral pain medication. We started Lovenox 30 mg twice a day on the morning after surgery. This will continue for about 2 weeks after surgery. Encouraged ice and elevation as needed. Encouraged bedside exercises as start by nursing and physical therapy. Physical and occupational therapy consults were placed. She did well out of bed. Case management was consulted for her disposition and it was determined that she would go home with in-home health and physical therapy. She did not develop any postoperative chest pain or shortness of breath, fevers or chills. She was deemed safe for home and was discharged to her home in stable condition with her on May 26, 2019.
[2019-05-26] MEDS ORDERED: CeleBREX 200 MG CAP PO SCH (21:00)
== END 2019-05-26 15:55 | disposition home health service (06) | DRG 470 ==
LOC: ASU 08:40 → 3E 14:22
DX: M17.12 Unilateral primary osteoarthritis, left knee